=== PATIENT | female | born 1970 | race African-American/Black ===

== ENCOUNTER 2017-05-11 23:55 | Emergency (ER) | payer SELFPAY ==
[~2017-05-11] VITALS: Ht 167.6 cm; Wt 90.0 kg
[2017-05-12 06:00] VITALS: BP 145/62
== END 2017-05-12 06:43 | disposition home or self-care (01) ==
LOC: ER 23:56
DX: S05.11XA Contusion of eyeball and orbital tissues, right eye, initial encounter (principal); S00.81XA Abrasion of other part of head, initial encounter; F17.210 Nicotine dependence, cigarettes, uncomplicated; Z88.0 Allergy status to penicillin; Y04.0XXA Assault by unarmed brawl or fight, initial encounter; W22.01XA Walked into wall, initial encounter; Y93.89 Activity, other specified; Y92.018 Other place in single-family (private) house as the place of occurrence of the external cause
CPT/HCPCS: 70450; 70486; 99284; Z7610

== ENCOUNTER 2017-11-25 07:04 | Emergency (ER) | payer OTHER ==
[~2017-11-25] VITALS: Ht 170.2 cm; Wt 70.0 kg
[2017-11-25] MEDS ORDERED: SODIUM CHLORIDE 0.9% 1,000 ML IV ONE (07:07)
[2017-11-25 07:10] VITALS: BP 150/94
== END 2017-11-25 08:04 | disposition left against medical advice (07) ==
LOC: ER 07:34
DX: R06.02 Shortness of breath (principal); R00.0 Tachycardia, unspecified; Z88.0 Allergy status to penicillin
CPT/HCPCS: 99283; J7030